=== PATIENT | female | born 1990 | race Caucasian/White ===

== ENCOUNTER 2017-07-31 20:28 | Emergency (ER) | payer OTHER ==
[~2017-07-31] VITALS: Ht 167.6 cm; Wt 83.9 kg
[2017-07-31] MEDS ORDERED: ETON1VAG VG (20:45)
[2017-07-31] MEDS ORDERED: ONDANSETRON HCL/PF 4 MG/2 ML VIAL ONE ×2 (20:59→21:38)
[2017-07-31] MEDS ORDERED: IV LR 1000 ML 1,000 ML IV ONE (21:00)
[2017-07-31] MEDS ORDERED: ONDANSETRON HCL/PF 4 MG/2 ML VIAL IVP ONE (21:00)
[2017-07-31 21:14] LABS: CALCIUM, SERUM 7.6 mg/dL (8.5-10.1); CREATININE 0.7 mg/dL (0.6-1.3); POTASSIUM 3.3 mmol/L (3.5-5.1)
[2017-07-31 21:19] LABS: BASOPHILS % (AUTO) 0.1 % (0.0-2.0); EOSINOPHILS % (AUTO) 0.4 % (0.0-6.0); HEMATOCRIT 34 % (33-45); LYMPHOCYTES # (AUTO) 1.1 /CMM (0.8-4.8); LYMPHOCYTES % (AUTO) 13.6 % (20.0-44.0); MEAN CORPUSCULAR HEMOGLOBIN 33 PG (26.0-33.0); MEAN CORPUSCULAR HGB CONC 36 g/dl (31.0-36.0); MEAN CORPUSCULAR VOLUME 91 fL (82-100); MONOCYTES # (AUTO) 0.6 /CMM (0.1-1.30); MONOCYTES % (AUTO) 7.5 % (2.0-12.0); NEUTROPHILS # (AUTO) 6.7 /CMM (1.8-8.9); NEUTROPHILS % (AUTO) 78.4 % (43.0-81.0); PLATELET COUNT (AUTO) 172 /CMM (150-450); RDW COEFFICIENT OF VARIATION 10.7 (11.5-15.0); WHITE BLOOD COUNT (AUTO) 8.4 K/uL (4.3-11.0)
[2017-07-31] MEDS ORDERED: CALCIUM GLUCONATE 500 MG TABLET PO SCH (21:30)
[2017-07-31] MEDS ORDERED: POTASSIUM CHLORIDE 20 MEQ TAB.PRT.SR PO ONE ×3 (21:30→21:51)
--- NOTE | 2017-07-31 21:42 | NUR ---
PT TRIED TO TAKE POTASSIUM PO AND STARTED TO VOMIT, MD MADE AWARE ARIES ORDERED AND MDSTATES GIVE IT TEN MINUTES AND TRY TO GIVE THE PILLS AGAIN, WILL CONTINUE TO MONITOR.
[2017-07-31] MEDS ORDERED: CALCIUM GLUCONATE 500 MG TABLET ONE (21:49)
[2017-07-31] MEDS ORDERED: ONDANSETRON HCL/PF 4 MG/2 ML VIAL IV ONE (22:00)
[2017-07-31 22:22] VITALS: BP 136/84
== END 2017-07-31 22:23 | disposition home or self-care (01) ==
LOC: ER 20:30
DX: T67.5XXA Heat exhaustion, unspecified, initial encounter (principal); E86.0 Dehydration; X58.XXXA Exposure to other specified factors, initial encounter; Y93.89 Activity, other specified; Y92.89 Other specified places as the place of occurrence of the external cause; Y99.8 Other external cause status
CPT/HCPCS: 36415; 80048; 82962; 85025; 96361; 96374; 96376; 99284; A4606; J2405 ×2; J7120 ×2; Z7610

== ENCOUNTER 2019-01-09 23:45 | Emergency (ER) | payer OTHER ==
[~2019-01-09] VITALS: Ht 167.6 cm; Wt 91.6 kg
[~2019-01-09 23:45] MED LIST: ETON1VAG VG
[2019-01-10] MEDS ORDERED: ACETAMINOPHEN ES 500 MG TABLET ONE (00:06)
[2019-01-10] MEDS ORDERED: NITROGLYCERIN PACKET 1 GM PACKET ONE (00:06)
[2019-01-10] MEDS ORDERED: ASPIRIN 81 MG TAB.CHEW ONE (00:07)
--- NOTE | 2019-01-10 00:10 | NUR ---
PT PRESENTED TO THE ER WITH A C/O L SIDED CP. PT WAS PLACED ON THE MONITOR AND CONTINUOUS PULSE OX. PT STATED THAT SHE HAS INTERMITTENT MIDSTERNAL CP.
--- NOTE | 2019-01-10 00:15 | NUR ---
PT FELT DIZZY AFTER THE IV INSERTION AND BLOOD DRAW. PT WAS PLACED IN A LYING POSITION.
[2019-01-10 00:16] LABS: BASOPHILS % (AUTO) 0.2 % (0.0-2.0); EOSINOPHILS % (AUTO) 0.8 % (0.0-6.0); HEMATOCRIT 41 % (33-45); HEMOGLOBIN 14.7 g/dL (11.5-14.8); LYMPHOCYTES # (AUTO) 2.3 /CMM (0.8-4.8); LYMPHOCYTES % (AUTO) 26.6 % (20.0-44.0); MEAN CORPUSCULAR HGB CONC 36 g/dl (31.0-36.0); MEAN CORPUSCULAR VOLUME 91 fL (82-100); MONOCYTES # (AUTO) 0.6 /CMM (0.1-1.30); MONOCYTES % (AUTO) 7.1 % (2.0-12.0); NEUTROPHILS # (AUTO) 5.6 /CMM (1.8-8.9); NEUTROPHILS % (AUTO) 65.3 % (43.0-81.0); PLATELET COUNT (AUTO) 209 /CMM (150-450); RED BLOOD CELL COUNT(AUTO) 4.55 MIL/uL (4.0-5.2); WHITE BLOOD COUNT (AUTO) 8.5 K/uL (4.3-11.0)
--- NOTE | 2019-01-10 00:16 | NUR ---
DR. DAVE IS AT THE BEDSIDE.
[2019-01-10 00:26] LABS: CARBON DIOXIDE 21 mmol/L (21-32); CHLORIDE 99 mmol/L (98-107); CREATININE 0.7 mg/dL (0.6-1.3); GLUCOSE 105 mg/dL (74-106); POTASSIUM 2.9 mmol/L (3.5-5.1); SODIUM SERUM 134 mmol/L (136-145); UREA NITROGEN, BLOOD 6 mg/dL (7-18)
[2019-01-10] MEDS ORDERED: ASPIRIN 81 MG TAB.CHEW PO ONE (00:30)
[2019-01-10] MEDS ORDERED: POTASSIUM CHLORIDE 20 MEQ TAB.PRT.SR PO ONE ×2 (00:30→00:38)
[2019-01-10] MEDS ORDERED: LORAZEPAM INJ 2 MG/ML VIAL IV ONE (00:30)
[2019-01-10] MEDS ORDERED: NITROGLYCERIN PACKET 1 GM PACKET TD ONE (00:30)
[2019-01-10] MEDS ORDERED: ACETAMINOPHEN ES 500 MG TABLET PO ONE (00:30)
[2019-01-10] MEDS ORDERED: ONDANSETRON HCL/PF - ER 4 MG/2 ML VIAL IV ONE (00:30)
[2019-01-10] MEDS ORDERED: ONDANSETRON HCL/PF 4 MG/2 ML VIAL ONE (00:38)
[2019-01-10 00:39] LABS: ALANINE AMINOTRANSFERASE 12 U/L (12-78); ALBUMIN 3.5 g/dL (3.4-5.0); ALKALINE PHOSPHATASE 88 U/L (46-116); ASPARTATE AMINOTRANSFERASE 15 U/L (15-37); B-TYPE NATRIURETIC PEPTIDE 31 PG/ML (0-125); BILIRUBIN,DIRECT 0.2 mg/dL (0.0-0.2); BILIRUBIN,TOTAL 1.2 mg/dL (0.2-1.0); TOTAL PROTEIN, SERUM 7.1 g/dL (6.4-8.2)
[2019-01-10] MEDS ORDERED: LORAZEPAM INJ 2 MG/ML VIAL ONE (00:39)
--- NOTE | 2019-01-10 01:28 | NUR ---
BETHANY, PT'S FRIEND, CALL IF THERE IS ANY UPDATES OR IF PT NEEDS ANYTHING. SHE CAN BE REACHED AT [phone].
--- NOTE | 2019-01-10 02:13 | NUR ---
REPORT GIVEN TO RYAN BURGOS FOR MARCELO.
[2019-01-10 03:56] VITALS: BP 124/78
== END 2019-01-10 03:57 | disposition home or self-care (01) ==
LOC: ER 23:51
DX: R07.89 Other chest pain (principal); R00.2 Palpitations
CPT/HCPCS: 36415; 71045-TC; 80048-TC; 80076-TC; 80305; 83880; 84484-TC; 84703-TC; 85025-TC; 85378-TC; J2060; J2405